=== PATIENT | male | born 1975 | race Caucasian/White ===

== ENCOUNTER 2018-04-03 17:49 | Emergency (ER) | payer SELFPAY ==
--- NOTE | 2018-04-03 19:52 | ED ---
HPI Diabetic - HPI Summary HPI Summary: This is nam Devries documenting for attending Ashok Bull MD. This patient is a 42 year old M presenting to ED with a chief complaint of DM problems since earlier today. The patient reports he is almost out of his insulin and his last glucose level was 273 at 1610 today. He reports his glucose level was around 500 last night. He got his new prescription about a month ago and reports that insulin only lasts 28 days without refrigeration and because he is homeless, he states he needs new insulin. The patient rates the pain 0/10 in severity. Symptoms aggravated by nothing. Symptoms alleviated by nothing. Patient reports an open sore to lateral aspect of left foot. PMHx of DM1 (since 20 years ago), cataracts, and scabies (3 months ago). The patient takes novolin BID (20 in the morning and 15 at night, last took it this morning) . - History Of Current Complaint Chief Complaint: EDDiabeticProb Time Seen by Provider: 04/03/18 19:15 Hx Obtained From: Patient Onset/Duration: Sudden Onset, Lasting Hours - since last night and today Timing: Hours Severity Currently: None Aggravating: Nothing Alleviating: Nothing - Allergies/Home Medications Allergies/Adverse Reactions: Allergies Allergy/AdvReac Type Severity Reaction Status Date / Time No Known Allergies Allergy Verified 03/12/14 12:11 PMH/Surg Hx/FS Hx/Imm Hx Endocrine/Hematology History: Reports: Hx Diabetes Musculoskeletal History: Reports: Other Musculoskeletal History - Hand contractures - Surgical History Surgery Procedure, Year, and Place: Cataract surgery x2. Victrectomy x2 Infectious Disease History: No Infectious Disease History: Denies: Traveled Outside the [place] in Last 30 Days - Family History Known Family History: Positive: Hypertension, Other Family History: HLD, schizophrenia - Social History Alcohol Use: Rare Substance Use Type: Reports: None, Marijuana Smoking Status (MU): Never Smoked Tobacco Review of Systems Positive: Other - DM problems (reports glucose was in 500s last night) Positive: Other - open sore to lateral aspect of left foot All Other Systems Reviewed And Are Negative: Yes Physical Exam - Summary Physical Exam Summary: VITAL SIGNS: Reviewed. GENERAL: Patient is a well-developed and nourished MALE who is lying comfortable in the stretcher. Patient is not in any acute respiratory distress. He has poor hygiene. HEAD AND FACE: No signs of trauma. No ecchymosis, hematomas or skull depressions. No sinus tenderness. EYES: PERRLA, EOMI x 2, No injected conjunctiva, no nystagmus. EARS: Hearing grossly intact. Ear canals and tympanic membranes are within normal limits. MOUTH: Oropharynx within normal limits. NECK: Supple, trachea is midline, no adenopathy, no JVD, no carotid bruit, no c- spine tenderness, neck with full ROM. CHEST: Symmetric, no tenderness at palpation LUNGS: Clear to auscultation bilaterally. No wheezing or crackles. CVS: Regular rate and rhythm, S1 and S2 present, no murmurs or gallops appreciated. ABDOMEN: Soft, non-tender. No signs of distention. No rebound no guarding, and no masses palpated. Bowel sounds are normal. EXTREMITIES: FROM in all major joints, no edema, no cyanosis or clubbing. NEURO: Alert and oriented x 3. No acute neurological deficits. Speech is normal and follows commands. SKIN: Dry and warm. He has excessive calluses on his feet, no open sores Triage Information Reviewed: Yes Vital Signs On Initial Exam: Initial Vitals Temp Pulse Resp BP Pulse Ox 97.5 F 78 17 130/70 99 04/03/18 18:07 04/03/18 18:07 04/03/18 18:07 04/03/18 18:07 04/03/18 18:07 Vital Signs Reviewed: Yes Diagnostics - Vital Signs Vital Signs Temp Pulse Resp BP Pulse Ox 04/03/18 18:07 97.5 F 78 17 130/70 99 - Laboratory Result Diagrams: 04/03/18 20:44 04/03/18 20:44 Lab Statement: Any lab studies that have been ordered have been reviewed, and results considered in the medical decision making process. Re-Evaluation - Re-Evaluation First Eval Re-Evaluation Time: 22:29 Comment: The patient wants to go home. Discussed discharge plan. Patient understands and agrees. Diabetic Course/Dx - Course Assessment/Plan: This patient is a 42 yo male complaining of high blood sugar. In the ED, the patient's blood sugar is down to 144. He will be given a new rx for NPH and the patient was advised to keep his feet clean and keep them in open air and dry. Patient will be D/C. Patient understands and agrees. - Diagnoses Differential Dx: Hyperglycemia Provider Diagnoses: Hyperglycemia Discharge - Sign-Out/Discharge Documenting (check all that apply): Patient Departure - Discharge Plan Condition: Stable Disposition: HOME Prescriptions: Insulin NPH Human Isophane [Novolin N] 20 unit SC BID #1 bottle Patient Education Materials: Foot Care for People with Diabetes (ED), Diabetic Hyperglycemia (ED) Referrals: [facility] [Outside] (Follow up in 1-2 days.) Additional Instructions: RETURN TO THE EMERGENCY DEPARTMENT FOR CHANGING OR WORSENING SYMPTOMS.
[2018-04-03] MEDS ORDERED: NS 0.9% 1000 ML* 2,000 ML IV ONE (20:28)
[2018-04-03] MEDS ORDERED: Insulin REGULAR(*) 1 UNITS UNIT IV PUSH ONE (20:29)
[2018-04-03 20:50] LABS: ABS Basophils 0 10^3/ul (0-0.2); ABS Eosinophils 0.1 10^3/ul (0-0.6); ABS Lymphocytes 1.2 10^3/ul (1.0-4.8); ABS Monocytes 0.4 10^3/ul (0-0.8); ABS Neutrophils 3.2 10^3/ul (1.5-7.7); ABS Nucleated RBC 0 10^3/ul; Eosinophil % 1.2 % (0-6); Hematocrit 42 % (42-52); Hemoglobin 14.7 g/dl (14.0-18.0); Mean Corpuscular HGB Conc 35 g/dl (31-36); Mean Corpuscular Hemoglobin 32 pg (27-31); Mean Corpuscular Volume 92 fL (80-94); Mean Platelet Volume 8.6 um3 (7.4-10.4); Nucleated Red Blood Cells % 0.6; Platelet Count 157 10^3/ul (150-450); Red Blood Count 4.54 10^6/ul (4.00-5.40); Red Cell Distribution Width 13 % (10.5-15); White Blood Count 4.9 10^3/ul (3.5-10.8)
[2018-04-03 21:31] LABS: Urine Appearance Clear; Urine Blood Negative (Negative); Urine Color Yellow; Urine Ketones Trace (Negative); Urine Protein Negative (Negative); Urine Specific Gravity 1.023 (1.010-1.030); Urine Urobilinogen Negative (Negative)
[2018-04-03 23:27] VITALS: BP 149/93
== END 2018-04-03 23:26 | disposition home or self-care (01) ==
LOC: ED 17:49
DX: E10.65 Type 1 diabetes mellitus with hyperglycemia (principal); Z79.4 Long term (current) use of insulin
CPT/HCPCS: 36415; 80053; 81003; 82803; 83735; 85025; 96361; 96374; 99283

== ENCOUNTER 2020-11-11 19:53 | Inpatient (IN) ==
[2020-11-11] MEDS ORDERED: NS 0.9% 1000 ml BAG 1,000 ML IV ONE ×2 (20:05→20:18)
[2020-11-11] MEDS ORDERED: Ondansetron 4 mg VIAL 2 MG/ML 2 ml VIAL IV ONE (20:06)
[2020-11-11] MEDS ORDERED: Piperacillin/Tazobac ADVAN 3.375 GM in NS 0.9% 100 ml BAG 100 ML IVPB ONE (20:22)
[2020-11-11] MEDS ORDERED: Vancomycin 1,000 MG in NS 0.9% 250 ml 250 ML IVPB SCH (21:00)
[2020-11-11] MEDS ORDERED: Vancomycin 1,000 MG - ED ONCE IVPB ONE (21:00)
[2020-11-11 21:21] LABS: ABS Lymphocytes 0.5 10^3/ul (1.0-4.8); ABS Monocytes 0.9 10^3/ul (0-0.8); ABS Neutrophils 11.3 10^3/ul (1.5-7.7); Hematocrit 42 % (42-52); Hemoglobin 14.7 g/dL (14.0-18.0); Lymphocyte % 3.6 %; Mean Corpuscular HGB Conc 35 g/dL (31-36); Mean Corpuscular Hemoglobin 32 pg (27-31); Mean Corpuscular Volume 93 fL (80-94); Mean Platelet Volume 9.8 fL (7.4-10.4); Platelet Count 240 10^3/uL (150-450); Red Blood Count 4.56 10^6 /uL (4.18-5.48); Red Cell Distribution Width 12 % (10-15); White Blood Count 12.7 10^3/uL (3.5-10.8)
[2020-11-11 21:38] LABS: Albumin 3.9 g/dL (3.2-5.2); Albumin/Globulin Ratio 1.4 (1-3); BUN/Creatinine Ratio 13.1 (8-20); C Reactive Protein 19.92 mg/L (<8.01); Calcium 9.2 mg/dL (8.6-10.3); EGFR African American 172.2 (>60); EGFR Non-African American 142.3 (>60); Globulin 2.7 g/dL (2-4); Potassium 3.6 mmol/L (3.5-5.0); Total Bilirubin 1.1 mg/dL (0.2-1.0); Total Protein 6.6 g/dL (6.4-8.9)
[2020-11-11 22:47] LABS: Erythrocyte Sed Rate 2 mm/Hr (0-14)
[2020-11-11 23:22] LABS: Urine Appearance Clear; Urine Bilirubin Negative (Negative); Urine Blood Negative (Negative); Urine Color Yellow; Urine Glucose Negative (Negative); Urine Ketones 1+ (Negative); Urine Nitrite Negative (Negative); Urine Protein Negative (Negative); Urine Specific Gravity 1.012 (1.010-1.030); Urine Urobilinogen Negative (Negative)
[2020-11-12] MEDS ORDERED: Dextrose 50% Syringe 50 ml 25 GM/50 ML SYRINGE IV PUSH PRN (01:09)
[2020-11-12] MEDS ORDERED: Vancomycin per Pharmacy 1 EA NOTE FOLLOW UP SCH (02:00)
[2020-11-12] MEDS: Cefepime 2 GM in Dextrose 2 GM/50 ML BAG IV SCH ×2 (05:11→21:34)
[2020-11-12] MEDS: Heparin 5000 UNITS/ML 1 mL VIAL SUBCUT SCH ×3 (05:12→21:34)
[2020-11-12] MEDS ORDERED: Vancomycin 1000 MG in NS 0.9% 250 ML IVPB SCH (06:00)
[2020-11-12] MEDS: Insulin GLARGINE 100 un/ml 10 ml VIAL SUBCUT SCH (09:26)
[2020-11-12] MEDS ORDERED: HYDROcodone/ACETAMIN 5/325 mg TAB PO PRN ×2 (13:00)
[2020-11-12] MEDS ORDERED: Oxacillin 2 GM in NS 0.9% 100 ML BAG IVPB SCH (14:00)
[2020-11-13] MEDS ORDERED: Vancomycin Trough Check NOTE FOLLOW UP ONE (05:30)
[2020-11-13] MEDS: Heparin 5000 UNITS/ML 1 mL VIAL SUBCUT SCH ×3 (06:39→20:57)
[2020-11-13 06:52] LABS: ABS Lymphocytes 0.7 10^3/ul (1.0-4.8); Eosinophil % 0.1 %; Hematocrit 38 % (42-52); Hemoglobin 13.3 g/dL (14.0-18.0); Lymphocyte % 7.6 %; Mean Corpuscular HGB Conc 35 g/dL (31-36); Mean Corpuscular Hemoglobin 33 pg (27-31); Mean Corpuscular Volume 93 fL (80-94); Mean Platelet Volume 9.1 fL (7.4-10.4); Platelet Count 188 10^3/uL (150-450); Red Blood Count 4.04 10^6 /uL (4.18-5.48); Red Cell Distribution Width 12 % (10-15); White Blood Count 9.8 10^3/uL (3.5-10.8)
[2020-11-13 07:08] LABS: BUN/Creatinine Ratio 13.8 (8-20); Calcium 8.2 mg/dL (8.6-10.3); EGFR African American 182.5 (>60); EGFR Non-African American 150.8 (>60)
[2020-11-13] MEDS: Insulin GLARGINE 100 un/ml 10 ml VIAL SUBCUT SCH (08:24)
[2020-11-13] MEDS: Cefepime 2 GM in Dextrose 2 GM/50 ML BAG IV SCH ×2 (08:25→20:15)
[2020-11-13 09:31] LABS: Body Fluid Source Synovial Fluid
[2020-11-13] MEDS ORDERED: Bupivacaine 0.5% 50 ML MDV VIAL ONE (09:58)
[2020-11-13] MEDS ORDERED: Bacitracin INJECTION 50,000 UNITS ONE (09:58)
[2020-11-13] MEDS ORDERED: fentaNYL 100 mcg/2 ml 50 MCG/ML VIAL ONE (10:08)
[2020-11-13] MEDS ORDERED: Midazolam 5 mg/5 ml VIAL 1 mg/ml 5 ml VIAL (5 mg) ONE (10:08)
[2020-11-13] MEDS ORDERED: DiMENhydriNATE IV 50 mg/ml 1 ml VIAL IV PUSH PRN (10:37)
[2020-11-13] MEDS ORDERED: HYDROmorphone 1 MG/1 ML SYRINGE IV PRN (10:37)
[2020-11-13] MEDS ORDERED: Naloxone 0.4 mg VIAL 0.4 mg/ml 1 ml VIAL IV PRN (10:37)
[2020-11-13] MEDS ORDERED: Propofol 10 MG/ML 20 ML BTL ONE (11:24)
[2020-11-13] MEDS ORDERED: Succinylcholine 200 mg VIAL 20 mg/ml 10 ml VIAL (200 mg) ONE (11:24)
[2020-11-13] MEDS ORDERED: DiMENhydriNATE IV 50 mg/ml 1 ml VIAL ONE (11:24)
[2020-11-13] MEDS ORDERED: Lidocaine 2% PF 5 ML VIAL ONE (11:24)
[2020-11-13] MEDS ORDERED: Ondansetron 4 mg VIAL 2 MG/ML 2 ml VIAL ONE (11:24)
[2020-11-13] MEDS ORDERED: Acetaminophen IV 1 GM/100ML 100 ML ONE (11:24)
[2020-11-13 12:37] LABS: Body Fluid Mono 1 %
[2020-11-14] MEDS: Heparin 5000 UNITS/ML 1 mL VIAL SUBCUT SCH ×3 (05:51→22:15)
[2020-11-14 07:21] LABS: ABS Monocytes 0.8 10^3/ul (0-0.8); ABS Neutrophils 5.2 10^3/ul (1.5-7.7); Eosinophil % 0.3 %; Hematocrit 36 % (42-52); Hemoglobin 12.6 g/dL (14.0-18.0); Lymphocyte % 13.7 %; Mean Corpuscular HGB Conc 36 g/dL (31-36); Mean Corpuscular Hemoglobin 33 pg (27-31); Mean Corpuscular Volume 93 fL (80-94); Nucleated Red Blood Cells % 0.1; Platelet Count 188 10^3/uL (150-450); Red Blood Count 3.82 10^6 /uL (4.18-5.48); Red Cell Distribution Width 12 % (10-15)
[2020-11-14 07:38] LABS: BUN/Creatinine Ratio 10.7 (8-20); Calcium 7.9 mg/dL (8.6-10.3); EGFR African American 190.1 (>60); EGFR Non-African American 157.1 (>60); Potassium 3.8 mmol/L (3.5-5.0)
[2020-11-14] MEDS: Insulin GLARGINE 100 un/ml 10 ml VIAL SUBCUT SCH (08:23)
[2020-11-14] MEDS: Cefepime 2 GM in Dextrose 2 GM/50 ML BAG IV SCH (08:23)
[2020-11-14] MEDS: ceFAZolin 2 GM PREMIX 2 GM/50 ML BAG IVPB SCH ×2 (14:59→22:14)
[2020-11-15] MEDS: ceFAZolin 2 GM PREMIX 2 GM/50 ML BAG IVPB SCH ×3 (06:28→21:35)
[2020-11-15] MEDS: Heparin 5000 UNITS/ML 1 mL VIAL SUBCUT SCH ×3 (06:28→21:35)
[2020-11-15 06:42] LABS: HDL Cholesterol 21.5 mg/dL
[2020-11-15] MEDS: Insulin GLARGINE 100 un/ml 10 ml VIAL SUBCUT SCH (08:36)
[2020-11-16] MEDS: Heparin 5000 UNITS/ML 1 mL VIAL SUBCUT SCH ×2 (05:29→12:54)
[2020-11-16] MEDS: ceFAZolin 2 GM PREMIX 2 GM/50 ML BAG IVPB SCH ×3 (05:29→22:07)
[2020-11-16] MEDS: Insulin GLARGINE 100 un/ml 10 ml VIAL SUBCUT SCH ×2 (08:41→09:34)
[2020-11-16] MEDS ORDERED: Enoxaparin 40 MG/0.4 ML SYR SUBCUT SCH (21:00)
[2020-11-17] MEDS: ceFAZolin 2 GM PREMIX 2 GM/50 ML BAG IVPB SCH ×2 (06:29→14:12)
[2020-11-17 06:46] LABS: BUN/Creatinine Ratio 14.3 (8-20); Calcium 8.7 mg/dL (8.6-10.3); EGFR African American 190.1 (>60); EGFR Non-African American 157.1 (>60); Potassium 4.1 mmol/L (3.5-5.0)
[2020-11-17 07:07] VITALS: BP 119/59
[2020-11-17] MEDS: Insulin GLARGINE 100 un/ml 10 ml VIAL SUBCUT SCH (08:10)
== END 2020-11-17 15:45 | disposition home or self-care (01) | DRG 710 ==
LOC: ED 19:53 → MED 11-12 01:03
PROVIDERS: ADMIT Internal Medicine; ATTEND Hospitalist